=== PATIENT | male | born 1945 | race Caucasian/White ===

== ENCOUNTER 2020-12-27 10:57 | Day surgery (SDC) | payer MEDICARE, OTHER ==
[2020-12-27] VITALS (12 sets, daily range): BP systolic 102–155; BP diastolic 48–76; PULSE 44–55; TEMP 97.4–98.6
[~2020-12-27] VITALS: Ht 177.8 cm; Wt 82.6 kg
[~2020-12-27 10:57] MED LIST: ACCUPRIL40MGTAB PO; ASPIRIN 81M81 MG/TA2 PO; ATENOLOL100 MG PO; CARDI-OMEGA1000 MG PO; CIPRO 500MG TA500 MG PO; FLOMAX 0.40.4 MG/CAP PO; HCTZ PO; MULTIPLE VITAMI1 CAP PO; NIACIN500 MG PO; ZOCOR 20MG20 MG PO
[2020-12-27] MEDS ORDERED: TENORMIN 5050 MG/TAB PO (11:33)
[2020-12-27] MEDS ORDERED: ZOCOR 40MG40 MG PO (11:34)
[2020-12-27] MEDS ORDERED: STOOL SOFTENER100 M2 PO (11:35)
[2020-12-27] MEDS ORDERED: PROTONIX 40MG T40 MG PO (11:35)
[2020-12-27] MEDS ORDERED: TYLENOL 500MG500 MG PO (11:36)
[2020-12-27] MEDS ORDERED: PROSCAR 5MG5 MG PO (11:36)
[2020-12-27] MEDS ORDERED: MULTIPLE VITAMI1 TA5 PO (11:36)
--- NOTE | 2020-12-27 13:10 | NUR ---
The patient was taken back to the operating room via cart at this time. The patient's chart was sent with him to surgery. The patient's belongings were taken over to the recovery room and will be transferred with the patient up to the 3rd floor post operatively.
--- NOTE | 2020-12-27 14:55 | NUR ---
Pt arrived to floor at this time. PT is alert and awake, shaking and has been since surgery per PACU nurse. PT in bed resting comftably, provided simple foods per request and will advance diet as tolerated. [place] draining pink clear urine to DD with CBI infusing at slow rate. Will continue to monitor.
--- NOTE | 2020-12-27 18:02 | NUR ---
Pt has done well over shift, off Post ops, pain at 1/10 to bladder, CBI running at moderate rate. Resting comfortably with at bedside. Denies needs, will conitnue to monitor.
--- NOTE | 2020-12-27 20:45 | NUR ---
Pt. sitting up in bed at this time. Pt. is A&OX3, assessment complete. IV to lt. wrist patent, IV fluids infusing per orders. Pt. denies pain or other needs, call light within reach.
[2020-12-28 04:04] VITALS: BP 139/69; PULSE 50; TEMP 97.7
[2020-12-28 07:26] VITALS: BP 139/63; PULSE 51; TEMP 98.1
--- NOTE | 2020-12-28 10:43 | NUR ---
First visit from the cosmetic surgeon. No needs right now.
[2020-12-28 11:32] VITALS: BP 137/79; PULSE 57; TEMP 98.1
--- NOTE | 2020-12-28 11:45 | NUR ---
Coronado catheter discontinued at this time. Primed and pulled Catheter. Explained 6 cup routine. Patient tolerated well, no questions verbalized. No other changes at this time. Call light within reach.
--- NOTE | 2020-12-28 15:00 | NUR ---
Patient is discharging home. He completed his six cups. His urine started out light red and stayed that way until the last cup, it was yellow and clear. He has a follow up appointment already scheduled. Discharge instructions discussed with patient, no questions verbalized. INT discontinued. All belongings packed up and sent with patient. Copies of discharge instructions sent with patient. Patient walked out via wheel chair.
== END 2020-12-28 15:05 | disposition home or self-care (01) ==
LOC: SDCO 10:57 → SURG 15:22 → SDCO 12-28 15:05
DX: N40.1 Benign prostatic hyperplasia with lower urinary tract symptoms (principal); R39.12 Poor urinary stream; R33.8 Other retention of urine; N42.0 Calculus of prostate; I25.10 Atherosclerotic heart disease of native coronary artery without angina pectoris; Z79.82 Long term (current) use of aspirin; Z79.899 Other long term (current) drug therapy; Z90.89 Acquired absence of other organs; Z80.42 Family history of malignant neoplasm of prostate
CPT/HCPCS: OP; J2704; J3480; J7120

== ENCOUNTER → 2024-02-29 | Outpatient (CLI) | payer MEDICARE ==
[~2024-02-29] MED LIST changes: +Iohexol 300 - 10 ML VIAL IV ONE; +MOTRIN 200200 MG/TAB PO; +MULTIPLE VITAMI1 TA5 PO; +NORCO 325 MG-51 TAB PO; +PROSCAR 5MG5 MG PO; +PROTONIX 40MG T40 MG PO; +STOOL SOFTENER100 M2 PO; +TENORMIN 2525 MG/TAB PO; +TENORMIN 5050 MG/TAB PO; +TYLENOL 500MG500 MG PO; +Triamcinolone 40 MG/ML 1 ML VIAL IJ ONE; +ZOCOR 40MG40 MG PO
== END ==
LOC: COL.RAD 08:16
DX: M25.551 Pain in right hip (principal)
CPT/HCPCS: J0665; J3301; Q9967

== ENCOUNTER → 2024-04-24 | Outpatient (CLI) | payer MEDICARE, OTHER ==
[~2024-04-24] MED LIST changes: -Iohexol 300 - 10 ML VIAL IV ONE; -Triamcinolone 40 MG/ML 1 ML VIAL IJ ONE
== END ==
LOC: MHCPAIN 12:54
DX: M54.16 Radiculopathy, lumbar region (principal); M48.061 Spinal stenosis, lumbar region without neurogenic claudication; M47.817 Spondylosis without myelopathy or radiculopathy, lumbosacral region
CPT/HCPCS: G0463

== ENCOUNTER → 2024-05-15 | Outpatient (CLI) | payer MEDICARE, OTHER ==
[~2024-05-15] MED LIST changes: +Iohexol 300 - 10 ML VIAL ONE; +Lidocaine PF 2% (20 MG/ML) 2 ML VIAL ONE
== END ==
LOC: MHCPAIN 09:19
DX: M54.16 Radiculopathy, lumbar region (principal)
CPT/HCPCS: J1100; Q9967